=== PATIENT | female | born 1960 | race Caucasian/White ===

== ENCOUNTER 2016-12-18 15:57 | Emergency (ER) | payer SELFPAY ==
[2016-12-18 16:44] LABS: #Basophils 0.1 thou/uL (0.0-0.2); #Eosinphils 0.7 thou/uL (0.0-0.7); #Lymphocytes 3.9 thou/uL (1.20-3.40); #Monocytes 0.6 thou/uL (0.11-0.59); #Neutrophils 6.6 thou/uL (1.40-6.50); %Eosinophils 5.9 % (0.0-10.0); %Lymphocytes 32.5 % (21.0-51.0); %Monocytes 5.3 % (0.0-10.0); %Neutrophils 55.3 % (42.0-75.0); Hemoglobin 12.3 g/dL (12.0-16.0); Mean Corpuscular Hemoglobin 31.2 pg (27.0-31.0); Mean Corpuscular Volume 97.4 fl (81.0-99.0); Mean Platelet Volume 7.3 fL (7.4-10.4); Platelet Count 409 thou/uL (130-400); RBC Distribution Width 13.4 % (11.5-14.5); Red Blood Cell (RBC) Count 3.93 mill/uL (4.20-5.40)
[2016-12-18 16:59] LABS: Anion Gap 16 mmol/L (10-20); BUN (Urea Nitrogen) 7 mg/dL (9.8-20.1); Calc. Creatinine Clearance 0 mL/min (70-130); Calcium 9.8 mg/dL (7.8-10.44); Carbon Dioxide 24 mmol/L (22-29); Chloride 110 mmol/L (98-107); Estimated GFR-MDRD 55; Glucose 112 mg/dL (70-105); Potassium 4.7 mmol/L (3.5-5.1); Sodium 145 mmol/L (136-145)
--- NOTE | 2016-12-18 18:15 | RAD ---
PA AND LATERAL CHEST X-RAY 12/18/16 HISTORY: Elevated white blood cell count. FINDINGS: The cardiac silhouette and pulmonary vasculature are within normal limits. Lungs are clear. osseous structures are intact with mild degenerative changes seen in the spine. IMPRESSION: No acute cardiopulmonary process. POS: [facility]
== END 2016-12-18 18:00 | disposition home or self-care (01) ==
LOC: MADERS 15:57
DX: E03.9 Hypothyroidism, unspecified (principal); F32.9 Major depressive disorder, single episode, unspecified
CPT/HCPCS: 36415; 71020; 80048; 84443; 85025

== ENCOUNTER 2017-05-10 11:23 | Emergency (ER) | payer SELFPAY ==
[~2017-05-10 11:23] MED LIST: Dextrose 5 %-0.45 % NaCl 1000 ml Bag ONE
[2017-05-10 11:57] LABS: #Basophils 0.1 thou/uL (0.0-0.2); #Eosinphils 0.3 thou/uL (0.0-0.7); #Lymphocytes 2.9 thou/uL (1.20-3.40); #Monocytes 0.6 thou/uL (0.11-0.59); #Neutrophils 5.5 thou/uL (1.40-6.50); %Basophils 1.4 % (0.0-1.0); %Lymphocytes 31.2 % (21.0-51.0); %Monocytes 5.8 % (0.0-10.0); %Neutrophils 58.6 % (42.0-75.0); Mean Corpuscular Hemoglobin 29.7 pg (27.0-31.0); Mean Corpuscular Volume 89.8 fl (81.0-99.0); Mean Platelet Volume 8.7 fL (7.4-10.4); Platelet Count 378 thou/uL (130-400); RBC Distribution Width 13.1 % (11.5-14.5); Red Blood Cell (RBC) Count 4.38 mill/uL (4.20-5.40); White Blood Cell (WBC) Count 9.4 thou/uL (4.8-10.8)
[2017-05-10 12:06] LABS: INR-International Normal Ratio 1.1; PTT 35.3 SEC (22.9-36.1); Prothrombin Time 14.2 SEC (12.0-14.7)
[2017-05-10 12:20] LABS: CKMB 2.9 ng/mL (0-6.6); Troponin I 0.011 ng/mL (< 0.028)
[2017-05-10 12:21] LABS: ALT (SGPT) 29 U/L (8-55); AST (SGOT) 31 U/L (5-34); Acetaminophen Less than 6.0 mcg/mL (10.0-30.0); Albumin 4.5 g/dL (3.5-5.0); Alcohol Less than 10 mg/dL (Less than 10); Alkaline Phosphatase 113 U/L (40-150); Anion Gap 18 mmol/L (10-20); BUN (Urea Nitrogen) 16 mg/dL (9.8-20.1); Bilirubin, Total 0.6 mg/dL (0.2-1.2); Calc. Creatinine Clearance 0 mL/min (70-130); Calcium 9.5 mg/dL (7.8-10.44); Carbon Dioxide 23 mmol/L (22-29); Chloride 102 mmol/L (98-107); Estimated GFR-MDRD 50; Globulin 3.3 g/dL (2.4-3.5); Glucose 115 mg/dL (70-105); Lipase 20 U/L (8-78); Protein, Total 7.8 g/dL (6.0-8.3); Salicylate Less than 8.0 mg/dL (15.0-30.0); Sodium 140 mmol/L (136-145)
[2017-05-10] MEDS ORDERED: Lorazepam 2 MG/ML VIAL ONE (12:31)
[2017-05-10] MEDS ORDERED: Multivit, Adult Inj 10 ML VIAL ONE (12:31)
[2017-05-10] MEDS ORDERED: Thiamine HCl 200 MG/2 ML VIAL ONE (12:31)
[2017-05-10 12:39] LABS: BHCG - Serum Indeterminate (NEGATIVE); Pregs Control Background? CLEAR/WHITE (CLR/WHITE); Pregs Control Bar Appear? YES (CONTROL BAR)
[2017-05-10 12:50] LABS: Bilirubin Small (Negative); Blood, Urine Small (Negative); Glucose, Urine (Dipstick) Negative (Negative); Leukocyte Negative (Negative); Nitrite Negative (Negative); Protein, Urine (Dipstick) 30 mg/dL (Neg-Trace); pH, Urine 5.5 (5.0-9.0)
[2017-05-10 12:54] LABS: Clarity Hazy (Clear)
[2017-05-10 12:56] LABS: Bacteria/HPF Rare-Few HPF (None Seen); Squamous Epithelial 0-3 HPF (0-3); WBC/HPF 0-3 HPF (0-3)
[2017-05-10 12:57] LABS: Amphetamine Not Detected (NotDetected); Barbiturates Screen Not Detected (NotDetected); Benzodiazepine Screen Not Detected (NotDetected); Cocaine Metabolite Screen Not Detected (NotDetected); Medtox Control Line Valid? VALID (VALID); Methadone Not Detected (NotDetected); Methamphetamine Not Detected (NotDetected); Opiate Screen Not Detected (NotDetected); Oxycodone Screen Not Detected (NotDetected); Phencyclidine (PCP) Not Detected (NotDetected); THC/Cannabinoid Screen Not Detected (NotDetected); Tricyclic Screen Not Detected (NotDetected)
--- NOTE | 2017-05-10 13:04 | RAD ---
CHEST 1 VIEW: HISTORY: Altered mental status. COMPARISON: 12/18/16. FINDINGS: Cardiac silhouette is magnified by projection. Pulmonary vasculature is unremarkable. Mediastinum i s midline. There is no lobar consolidation or evidence of pneumothorax. conveyor monitor leads overl ie the chest. IMPRESSION: No active cardiopulmonary abnormalities are demonstrated. POS: [facility]
--- NOTE | 2017-05-10 17:21 | CT ---
EXAM: NONCONTRAST HEAD CT 05/10/17 HISTORY: Right sided weakness and altered mental status. COMPARISON: None. TECHNIQUE: Noncontrast head CT is performed from skull base to skull vertex. FINDINGS: Extensive hyperdense metastases throughout the brain parenchyma. Hyperdensity may in part be due to i ncreased cellularity. However, hemorrhagic components of the metastatic lesions is favored. Represent ative metastatic lesion is in the right temporal lobe, measuring 2.9 x 3.0 cm. There appears to be a fluid fluid level. There is extensive vasogenic edema. There is mass effect and obscuration of the ri ght lateral ventricle. There is entrapment of the temporal horn of the right lateral ventricle. There is hyperdensity on the right frontal cortex which may represent parenchymal hemorrhage. Extra-a xial hematomas cannot be excluded. There is right to left subfalcine herniation of approximately 5 mm. There is a small hyperdensity in the left Sylvian fissure. A component of subarachnoid blood cannot b e excluded. Calvarium is intact. Adequate aeration of the sinuses and mastoid air cells. IMPRESSION: Intracranial hemorrhage as detailed above. 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 Better interrogation with brain MRI is recommende d. Results of the study discussed with Dr. Bell, 05/10/17 at 4:20 p.m. POS: [facility]
== END 2017-05-10 18:20 | disposition short-term general hospital (02) ==
LOC: MADERS 11:23
DX: C71.9 Malignant neoplasm of brain, unspecified (principal); K02.9 Dental caries, unspecified; E03.9 Hypothyroidism, unspecified; F32.9 Major depressive disorder, single episode, unspecified; F17.200 Nicotine dependence, unspecified, uncomplicated
CPT/HCPCS: 36415; 70450; 71045; 80053; 80306; 80307; 81001; 82150; 82553; 83605; 83690; 83735; 83880; 84443; 84484; 84703; 85025; 85610; 85730; 87040; 87086; 93005; 96365; 96375; J2060; J3411; J7042